=== PATIENT | female | born 1960 | race Caucasian/White ===

== ENCOUNTER 2016-05-22 08:55 | Inpatient (IN) | payer MEDICARE, MEDICAID ==
[~2016-05-22] VITALS: Ht 160 cm; Wt 67.6 kg
[2016-05-22] VITALS (9 sets, daily range): BP systolic 75–133; BP diastolic 47–78; PULSE 61–92; RESP 10–18; O2SAT 95–98
--- NOTE | 2016-05-22 09:00 | ED.REPORT ---
HPI-Stroke / CVA May 22, 2016 ED Provider: The patient is a 56 year old developmentally delayed female who was brought to the emergency department by her family members who are concerned she may have had a stroke. The patient had a few ground level falls yesterday which is different from her baseline. She did not complain of any injuries from the falls.This morning at 0130 her mother noticed that the patient was having difficulty speaking and slurred speech. This has continued and she is even unable to state her full name. Her sister states that the patient is normally very talkative and able to communicate. She would not normally know the year but would know her age. She does not have history of a previous stroke. She has not been sick with a fever, chills, vomiting, diarrhea, cough, runny nose. Nursing Notes Stated Complaint: POSS STROKE Nursing Notes Reviewed: Yes Allergies: Coded Allergies: Potassium Clavulanate (Verified Allergy, Severe, 03/16/09) amoxicillin trihydrate (Verified Allergy, Severe, 03/16/09) General Time Seen by Provider: 09:01 Chief Complaint Slurred speech, Unable to speak Hx Obtained From: Other family..., Dressage Instructor Unable to Obtain Hx: Patient condition Arrived By: Wheelchair Time last known well This is unclear. Her symptoms were noticed at 0130 today and she had multiple falls the day before. Sudden in Onset?: Yes Symptom Duration: 5 - 8 hours Progression Since Onset: Constant Severity: Current: No pain currently Severity: Maximum: No pain Recent Healthcare: No recent hospitalization, Recent doctor visit Similar Sx Previous: No Risk Factors )( TPA Administration/Criteria Stroke Thrombolytic Therapy : TPA Considered: Yes TPA Administered Intravenously: No, exclusion criteria (onset unclear, at least 0130 this morning) NIH Stroke Scale Level of Consciousness: Alert and responsive (0) Ask Month & Age: Both questions right (0) Open/Close Eyes/Hand Hvac Services Professional: Performs both tasks (0) Horizontal EO Movements: None (0) Visual Malik: No visual loss (0) Facial Palsy: Normal symmetry (0) Right Arm Motor Drift (10s): Drift, not touch bed (1) Left Arm Motor Drift (10s): No drift 10 sec (0) Right Leg Motor Drift (5s): Drift, hits bed (2) Left Leg Motor Drift (5s): Drift, not touch bed (1) Limb Ataxia FNF/Heel-Boss: Ataxia in 1 limb (1) Sensation (Arms/Legs/Face): Complete sensory loss (2) (Family does not believe the patient would be able to answer this at baseline) Language Aphasia: Loss fluency ID matls (1) Dysarthria: Slurring intelligible (1) Extinction/Inattention: Prfound reynaldo-inattent (2) (Family does not believe the patient would be able to answer this at baseline) NIHSS Score: 11 ((7)) Time NIHSS Performed: 09:07 Date NIHSS Performed: May 22, 2016 Past Medical History Past Medical History Developmentally delayed Seasonal allergies Past Surgical History Reports: Appendectomy Family History Noncontributory Social History Lives with her parents but her sister and niece help take care of her. Other Social History: Good social support, Local resident Ambulatory Status Independent Review of Systems Unable to Obtain ROS Patient condition, Mental status Constitutional: Denies: Fever Ears / Nose / Throat: Denies: Nasal congestion Respiratory: Denies: Non-productive cough GI: Denies: Diarrhea, Vomiting Skin: Denies Rash Neurologic: Reports: Confusion, Problem walking, Slurred speech, Unable to speak Physical Exam Initial Vital Signs Vital Signs (First) Date Time Temp Pulse Resp B/P Pulse Ox O2 Delivery O2 Flow Rate FiO2 05/22/16 09:12 70 10 122/67 98 Room Air Initial VS: Reviewed ENT: Mucous membranes moist, Conjunctiva normal, No scleral icterus Abdomen / GI: Soft, Non-tender, No guarding, No rebound, No distention Lymphatic: No lymphadenopathy Extremities: Vascular intact, Neuro intact, No swelling, No tenderness Skin: Warm, Dry, No cyanosis Psychiatric: Mood/affect normal, Behavior normal, Normal thought content General/Constitutional: Awake, Alert Head / Eyes: Atraumatic, Normocephalic, PERRL, EOMI Neck: Supple, No swelling, Non-tender, No midline vertebral tend Respiratory / Chest: Atraumatic, Breath sounds NL, Breath sounds = bilat, No respiratory distress, No rales, No rhonchi, No wheezing Cardiovascular: Heart rate NL, Regular rhythm, Heart sounds NL, No murmurs, No rubs, Peripheral circulation NL Mental Status: Positive: Disoriented to time (baseline) Speech: Positive: Slow, Slurred SEE NIH STROKE SCALE ABOVE FOR MORE DETAILS, score: 7. Sensory is untestable. Extinction is untestable. The patient has weakness about her right upper and lower extremity, and left lower extremity. She is not able to identify some materials. Her speech is slow and slurred. Her coordination is decreased to her right upper extremity. Interpretation & Diagnostics Lab Results Interpretation Result Diagram: 05/22/16 1005 05/22/16 1005 Test 05/22/16 10:05 05/22/16 10:10 White Blood Count 5.1th/mm3 (3.8-10.1) Red Blood Count 4.79mil/mm3 (3.90-5.20) Hemoglobin 13.4g/dL (12.0-15.6) Hematocrit 40.1% (35.0-46.0) Mean Corpuscular Volume 83.7fL (81-100) Mean Corpuscular Hemoglobin 28.0pg (27.0-35.0) Mean Corpuscular Hemoglobin Concent 33.4% (32.0-37.0) Red Cell Distribution Width 14.2% (12.3-15.4) Platelet Count 110bil/L (150-400) Neutrophils (%) (Auto) 83.4% (40-74) Lymphocytes (%) (Auto) 10.9% (14-46) Monocytes (%) (Auto) 5.5% (4-12) Eosinophils (%) (Auto) 0.2% (0-5) Basophils (%) (Auto) 0% (0-3) Sodium Level 143mEq/L (134-144) Potassium Level 4.1mEq/L (3.5-5.2) Chloride Level 103mEq/L (97-108) Carbon Dioxide Level 29mmol/L (18-29) Blood Urea Nitrogen 16mg/dL (6-24) Creatinine 0.45mg/dL (0.57-1.00) Estimat Glomerular Filtration Rate 206mL/min (>59) Glucose Level 144mg/dL (60-99) Calcium Level 10.3mg/dL (8.5-10.1) Total Bilirubin 0.2mg/dL (0.0-1.2) Aspartate Amino Transf (AST/SGOT) 54U/L (0-50) Alanine Aminotransferase (ALT/SGPT) 86U/L (0-32) Alkaline Phosphatase 110U/L (25-150) Total Protein 7.6g/dL (6.4-8.4) Albumin 3.9g/dL (3.4-5.0) ECG Interpretation ECG Interpretation: Sinus rhythm with a rate of 65 Incomplete LBBB Time: 10:55 Interpreted by: ED physician X-Ray Chest Interpretation Chest Xray Interpretation: IMPRESSION: No acute cardiopulmonary disease. Dictated by: David Carrasco M.D. on 05/22/2016 at 10:28 Interpretation / Wet Read by: Interpret - Radiologist CT Head Interpretation IMPRESSION: No acute intracranial abnormalities. Dictated by: David Carrasco M.D. on 05/22/2016 at 9:36 Study: Head CT no contrast Interpretation / Wet Read by: Interpret - Radiologist Re-Eval/Medical Decision Med Decision/Clinical Course The patient has no swallow reflex at all and drools with an ice chip and therefore is NPO indefinitely. I am therefore going to order a chest x-ray to exclude aspiration. Rectal temperature is 30C. External rewarming is initiated right away as soon as this value was obtained. Source of Hx: Old records, Dressage Instructor, Family Re-Evaluation/Progress #1: Time of Eval: 09:13 Re-Evaluation/Progress Note: Discussed exam findings, diagnosis, and plan for admission with the patient and family members. They understand and agree. All questions were addressed. Re-Evaluation/Progress #2: Time of Eval: 10:43 Re-Evaluation/Progress Note: Discussed findings with the patient's family members. Consultation : Referral / Consult Name: Lisandro Collins MD Consulted With: Hospitalist Requested Call at: 10:21 Air Traffic Control Supervisor: Will see patient, Agrees with eval, Agrees with plan, Accepts admit Counseled Regarding: Diagnosis, Lab results, Need for admission Patient Discharge & Departure Impression: Primary Impression: Stroke CVA mechanism: unspecified Qualified Code: I63.9 - Cerebral infarction, unspecified Additional Impression: Hypothermia Encounter type: initial encounter Qualified Code: T68.XXXA - Hypothermia, initial encounter Disposition: ADMITTED TO HOSPITAL Discharge Condition All VS Reviewed: Yes Condition: Stable Scribe Attestation Portions of this note were transcribed by Jodi Porter. I, Dr. Kalpesh Reyna personally performed the history, physical exam and medical decision-making; I reviewed and confirmed the accuracy of the information in the transcribed note. Signed by: Norman Melo, 05/22/2015 and 1102. Kalpesh Reyna MD May 22, 2016 09:00 Jodi Porter May 22, 2016 09:21
--- NOTE | 2016-05-22 09:38 | DRSVH ---
PROCEDURE: CT BRAIN WITHOUT CONTRAST ([id number]) INDICATIONS: 56 year-old female with right-sided weakness and loss of speech. TECHNIQUE: Noncontrast 4.5 mm thick angled axial sections acquired from the foramen magnum to the vertex, with c oronal reformats. COMPARISON: None. FINDINGS: Image quality: Excellent. CSF spaces: Basal cisterns are patent. No extra-axial fluid collections. Ventricles are normal in size and shape. Brain: No midline shift. No intracranial masses or hemorrhage. Camacho-white matter interface is norm al. Skull and face: Calvarium and visualized facial bones are intact, without suspicious lesions. Sinuses: Visualized sinuses and mastoids are clear. IMPRESSION: No acute intracranial abnormalities. Dictated by: David Carrasco M.D. on 05/22/2016 at 9:36 Approved by: David Carrasco M.D. on 05/22/2016 at 9:36
[2016-05-22 10:16] LABS: BASOPHILS % (AUTO) 0 % (0-3); EOSINOPHILS % (AUTO) 0.2 % (0-5); MONOCYTES % (AUTO) 5.5 % (4-12); Mean Corpuscular Volume 83.7 fL (81-100); NEUTROPHILS % (AUTO) 83.4 % (40-74); Platelet Count 110 bil/L (150-400)
--- NOTE | 2016-05-22 10:16 | NUR ---
Evaluation completed. Please go to "Notes" then click on "Assessments and Notes" (bottom left corner of screen). Then select appropriate discipline tab on top of screen.
--- NOTE | 2016-05-22 10:30 | DRSVH ---
PROCEDURE: X-RAY CHEST ONE VIEW, PORTABLE ([id number]) INDICATIONS: 56 year-old female with stroke symptoms. TECHNIQUE: One view of the chest was acquired. COMPARISON: [facility], , CHEST 1VW (PORTABLE), 03/19/2007, 5:44. [facility], , CHEST 2VW, 03/12/2007, 18:24. FINDINGS: Surgical changes and devices: None. Lungs and pleura: No pleural effusions or pneumothorax. Lungs are clear. Mediastinum: Mediastinal contours appear normal. Heart size is normal. Bones and chest wall: No suspicious bony lesions. Overlying soft tissues appear unremarkable. IMPRESSION: No acute cardiopulmonary disease. Dictated by: David Carrasco M.D. on 05/22/2016 at 10:28 Approved by: David Carrasco M.D. on 05/22/2016 at 10:28
[2016-05-22] MEDS ORDERED: Ondansetron 2 mg/mL 2 mL Inj IVPUSH PRN (10:45)
[2016-05-22] MEDS ORDERED: Alum-Mag Hydrox-Simeth 30 mL Suspension PO PRN (10:45)
[2016-05-22] MEDS ORDERED: 0.9% Sodium Chloride 1,000 ML IV ONE (11:00)
[2016-05-22] MEDS ORDERED: 0.9% Sodium Chloride 1,000 ML IV SCH (11:00)
[2016-05-22] MEDS ORDERED: MULT-1018 PO (11:01)
[2016-05-22] MEDS ORDERED: RISP2TAB3 PO (11:01)
[2016-05-22] MEDS ORDERED: CALC-78 PO (11:01)
[2016-05-22 11:11] LABS: APPEARANCE,URINE CLEAR (CLEAR,HAZY); COLOR,URINE YELLOW (YELLOW); OCCULT BLOOD,URINE NEGATIVE (NEGATIVE); UROBILINOGEN,URINE NORMAL (NORMAL)
--- NOTE | 2016-05-22 11:51 | ABG ---
DateTimeAnalyzed 11:47:00 -_ pH ____7.352 - 7.350 7.450 pCO2 ___57.9__ -mmHg 35.0 45.0 pO2 116 -mmHg 69.0 116 HCO3- ___31.3__ -mmol/L 22.0 26.0 ABE ____4.7__ -mmol/L -2.0 2.0 tHb ___13.0__ -g/dL O2Hb ___96.5__ -% COHb ____0.2__ -% MetHb ____1.3__ -% sO2 ___98.0__ -% FIO2 ___21.0__ -% Drawn By jj - Date/Time Notified____ 11:51:00 -_ Oxygen Device 1 _ROOM AIR - Notified By jj - Notified Whom dr oscar - B 758 -mmHg tO2 ___17.8__ -Vol% Chang test _Positive -
[2016-05-22 12:33] LABS: Ammonia 26 ug/dL (18-53)
[2016-05-22 12:46] LABS: TROPONIN T 0.01 ug/L (0.0-0.011)
--- NOTE | 2016-05-22 13:46 | NUR ---
Case Management: IRINA delivered and explained to pt. and caregiver. Original placed in chart. Copy left at bedside. Yareli Mckeon RN
--- NOTE | 2016-05-22 14:46 | NUR ---
Admit Pt arrived to [facility] rm 1027 at approx 1200. Report give to set up and charger from Marisel Vee RN. Pt was moved to the hospital bed via slider board. Family at bedside. Pt arrive w/o a bear hugger, awaiting another machine from boiler house inspector. Admit complete, family oriented to room and call light by COURT BAILIFF. Pt is dev delay at baseline. Med rec complete and hospitalist is aware. Addendum: 05/22/16 at 1753 by RAVEN OVALLES RN Bear hugger placed at approx 1530 set at 44c.
--- NOTE | 2016-05-22 15:14 | DRSVH ---
PROCEDURE: MRI STROKE PROTOCOL ([id number]) Pre- and post-contrast brain MRI, non-contrast brain MR angiogram, pre- and postcontrast neck MR marie ogram INDICATIONS: 56 year-old female with stroke symptoms. TECHNIQUE: Brain: Noncontrast axial T1 spin echo, axial T2 fast spin echo, sagittal and axial FLAIR, coronal T2 fast spin echo, axial gradient echo, axial diffusion and ADC through the brain. After the administr ation of contrast, axial 3D VIBE of the cranial vasculature and brain. Brain MRA: Non-contrast 3-D time of flight MR angiogram, with multiple rdpkyff-kbyddgxqn-bromkvpzqy (MIP) reformats performed. Neck MRA: Axial and sagittal TruFISP through the neck. Coronal dynamic MR angiogram during administ ration of contrast in the arterial and venous phases, with 3-dimenstional bhxqifk-xwtgnrlvz-iqpqnsujv n (MIP) reformats constructed from subtraction images. COMPARISON: [facility], CT, CT BRAIN WO CON, 05/22/2016, 9:24. FINDINGS: Image quality: Excellent. BRAIN: CSF spaces: Ventricles are normal in size and shape. Basal cisterns are patent. No extra-axial flu id collections. Brain: No intracranial bleeds or mass effects. Camacho-white matter interface is normal. Diffusion we ighted images show no acute ischemic insults. Brainstem appears normal. Normal intravascular flow v oids are present. No abnormal intracranial enhancement. Skull and face: Calvarial marrow signal is normal. Orbits appear normal. Sinuses: Sinuses and mastoids are clear. BRAIN MR ANGIOGRAM: Anterior circulation: Intracranial internal carotid arteries are normal in size and enhancement. Th e flow within the paired anterior cerebral arteries is normal and symmetric. The flow within the mid dle cerebral arteries is normal and symmetric. The anterior communicating artery is seen. No stenos es, occlusions, or aneurysms. Posterior circulation: The visualized portions of the vertebral arteries demonstrate normal caliber, and join to form a normal appearing basilar artery. The flow within the posterior cerebral arteries is normal and symmetric. No stenoses, occlusions, or aneurysms. NECK MR ANGIOGRAM: Carotids: Great vessels demonstrate a conventional anatomy as they arise from the aortic arch. The origins of the common carotid arteries appear patent. The calibers and courses of both common caroti d arteries are normal. The bifurcation regions appear normal bilaterally. The internal carotid cindy lashell demonstrate caliber, with bilateral mid internal carotid tortuosity. Posterior circulation: The origins of the codominant vertebral arteries appear patent. More superio r portions of both vertebral arteries demonstrate normal course and caliber, and join to form a kelli l appearing basilar artery. Miscellaneous: Subclavian arteries appear patent. Pre-contrast images through the neck show no soft tissue abnormalities. IMPRESSION: BRAIN MRI: No acute intracranial abnormalities. BRAIN MR ANGIOGRAM: No hemodynamically significant lesions of the central intracranial vasculature. NECK MR ANGIOGRAM: No hemodynamically significant lesions of the extracranial neck vasculature. Dictated by: David Carrasco M.D. on 05/22/2016 at 15:12 Approved by: David Carrasco M.D. on 05/22/2016 at 15:12
--- NOTE | 2016-05-22 16:31 | NUR ---
Social Work: Screen Note: Data & Assessment: EMR Reviewed. Patient is a 56 y/o female who admitted for CVA. Patient is developmentally delayed at baseline per nurses note. Patient's NOK is listed as Lynda Borjas [phone]. patient does not have a DPOA on file. Patient PCP is listed as Yuki Romo PA-C. Patient insurance is Medicare and [facility] as secondary. SW will continue to follow. Plan: SW will continue to follow for discharge planning need. Clary Carrera LMSW, ACAriel
--- NOTE | 2016-05-22 17:41 | PCM.HPMED ---
Subjective Date of Service May 22, 2016 Primary Provider: Admitting Physician: Lisandro Collins MD Primary Care Physician: Jaimie Romo PA-C Attending Physician: Lisandro Collins MD Admit Status: From the Emergency Department, Full Admit, Admit to Red Team Chief Complaint: Altered mental status/1 day History of Present Illness: 56-year-old lady with past medical history of cognitive developmental delay was brought in by family due to altered mental status and generalized weakness of 1 day. Patient was noted to have 2 episodes of ground-level falls yesterday, which was unusual for her. Patient was also noted be be lethargic/sleepy and non verbal today . Normally she is talkative as per family. This morning at 1 AM patient went into her mother's bedroom and was just staring which is unusual for her and was having slurring of speech which prompted ED visit. Ed course : Severely hypothermic rectal temp 30, BP 122/67, HR 70, RR 8 /m, saturating 98% on room air Reportedly had right-sided weakness on initial exam as per ED physician, initial NIHSS 7 . Not a candidate for TPA due to out of window Labs unremarkable, urinalysis negative. CT head unremarkable Hospitalist service requested for admission for suspected acute stroke. Upon my evaluation: Severely hypothermic, very lethargic, follows commands intermittently. Able to lift all 4 extremities and no asymmetry noted. Dry tongue Review of Systems: A comprehensive review of systems performed , pertinent positives and negatives included in history of present illness Allergies Coded Allergies: Potassium Clavulanate (Verified Allergy, Severe, 03/16/09) amoxicillin trihydrate (Verified Allergy, Severe, 03/16/09) Home Medications Risperidone 2 mg by mouth twice a day Calcium 500+ D3 500 daily PMH Cognitive developmental delay History of appendiceal abscess Surgical History Appendectomy Family History Reviewed and unremarkable Lives with parents, Social History Hx Alcohol Use: No Hx Substance Use: No Hx Tobacco Use: No Living Arrangement: with Family Exam Vital Signs Vital Sign - Last Date Time Temp Pulse Resp B/P Pulse Ox O2 Delivery O2 Flow Rate FiO2 05/22/16 15:49 30.4 05/22/16 15:03 63 05/22/16 12:00 18 126/78 96 Room Air Exam Gen. patient is lying comfortably in hospital bed HEENT: Head is normocephalic atraumatic, Pupils equal and reactive, extraocular movements intact, Lungs clear to auscultation bilaterally Heart regular rate and rhythm without murmurs gallops or rubs Abdomen soft nontender without hepatosplenomegaly Extremities pulses are present dorsalis pedis posterior tibialis and radial. tSkin is warm and dry there are no rashes, Psych alert and oriented to person place and time Neuro initial exam. Patient very lethargic and follows commands intermittently. Moves all 4 extremity, no asymmetry noted. Patient being warmed with a beat hugger . Mentation improved on subsequent exam. No slurring of speech. Lymph: There is no lymphadenopathy appreciated in the cervical supra infraclavicular regions : no gill Lab and Diagnostics Result Diagram: 05/22/16 1005 05/22/16 1005 X-Rays, CTs and MRIs MRI IMPRESSION: BRAIN MRI: No acute intracranial abnormalities. BRAIN MR ANGIOGRAM: No hemodynamically significant lesions of the central intracranial vasculature. NECK MR ANGIOGRAM: No hemodynamically significant lesions of the extracranial neck vasculature. Dictated by: David Carrasco M.D. on 05/22/2016 at 15:12 Assessment & Plan 56-year-old lady with past medical history of cognitive developmental delay was brought in by family due to altered mental status and generalized weakness of 1 day. # Altered mental status ,poa,acute -Unclear etiology at this point. Mainly due to hypothermia. Mentation improving with rewarming. - Patient has elevated TSH 5.6 but normal free T4, MRI negative for acute stroke , urinalysis normal , ammonia normal -Abnormal thyroid function possibly due to sick euthyroid but will treat with IV Synthroid given hypothermia of unclear etiology -Failed swallow eval,npo -NS 1 L bolused,100ml./h -urine tox pending # severe hypothermia,poa,acute -Possibly accidental hypothermia due to exposure to cold environment given cognitive developmental delay. Unclear /not witnessed if she is exposed to cold environment -Initial Rectal temp 30. -EKG unremarkable -watch out for hypoglycemia,arrythmia and rhabdo on rewarming -Continue Bear hugger warming # Initially suspected CVA, TIA possible -Rectal aspirin given -MRI negative -We will consider discharging on aspirin and statin for suspected TIA given reported slurred speech and right-sided weakness in ED with initial NIHSS 7, -PT eval # Hypercalcemia -Likely due to dehydration -IV rehydration as above - will send PTH and vit D #Cognitive developmental delay - will resume risperidone once able to swallow Full code as per POA POA sister Marjorie tel [phone] Patient admitted under inpatient status with expected length of stay > 2 midnights for severity of present symptoms, complexities of treatment plan and risk for adverse events Resuscitation Status: CPR: Attempt Resuscitation Time spent 55 minutes copies to: Jaimie Romo PA-C, Melaku MD May 22, 2016 17:41
[2016-05-22] MEDS: Levothyroxine 100 mCg/5 mL Inj IM SCH (17:43)
[2016-05-22] MEDS: Dextrose 5% 0.45% NaCl 1,000 ML IV SCH (22:28)
[2016-05-23] VITALS (9 sets, daily range): BP systolic 90–113; BP diastolic 53–68; PULSE 56–89; RESP 17–19; O2SAT 96–100
--- NOTE | 2016-05-23 | NUR ---
Temp Body temp has come up to normal, measured orally. Bear hugger removed and temp steady. Pt felt hot but has normalized with appropriate blankets.
[2016-05-23] MEDS ORDERED: 0.9% Sodium Chloride 500 ML IV ONE (00:40)
[2016-05-23] MEDS: 0.9% Sodium Chloride 1,000 ML IV SCH ×3 (03:54→23:50)
--- NOTE | 2016-05-23 04:00 | NUR ---
Low B/P B/P low at 2345, NS bolus given with minimal effect. At 0300 recheck B/P remains low, started concurrent fluids for support. Pt able to void spontaneously adequate urine output. Able to ambulate to BR with strong, steady gait; no evidence of dizziness, no SOB. Q4 hour vitals continue.
[2016-05-23 06:33] LABS: BASOPHILS % (AUTO) 0.2 % (0-3); EOSINOPHILS % (AUTO) 0.2 % (0-5); MONOCYTES % (AUTO) 11.5 % (4-12); Mean Corpuscular Hemoglobin 27.3 pg (27.0-35.0); Mean Corpuscular Volume 85.1 fL (81-100); NEUTROPHILS % (AUTO) 70.5 % (40-74); Platelet Count 99 bil/L (150-400)
[2016-05-23 06:47] LABS: Magnesium 1.5 mg/dL (1.6-2.6)
[2016-05-23] MEDS: Levothyroxine 100 mCg/5 mL Inj IM SCH (07:34)
[2016-05-23] MEDS ORDERED: Magnesium Sulf 2 Gm/50mL Water 2 GM in IV Premix 1 EACH IV ONE (08:00)
[2016-05-23] MEDS ORDERED: 0.9% Sodium Chloride 1,000 ML IV ONE (08:00)
[2016-05-23] MEDS: Dextrose 5% 0.45% NaCl 1,000 ML IV SCH ×2 (10:11→21:00)
--- NOTE | 2016-05-23 16:14 | NUR ---
Off Unit Patient off floor to CT via W/C.
--- NOTE | 2016-05-23 16:30 | NUR ---
Back on Unit Patient back on floor from CT via W/C.
--- NOTE | 2016-05-23 16:49 | DRSVH ---
PROCEDURE: CT ABDOMEN AND PELVIS WITHOUT CONTRAST ([id number]) INDICATIONS: pain TECHNIQUE: Noncontrast 5 mm thick sections acquired from the diaphragms to the symphysis. 5 mm coronal and sagi ttal reformats were then performed. For radiation dose reduction, the following was used: automated exposure control, adjustment of mA and/or kV according to patient size. COMPARISON: None. FINDINGS: Image quality: Excellent. ABDOMEN: Lung bases: There are small low density pleural effusions and mild compressive atelectasis at the oni g bases. Solid organs: Liver and spleen are normal in size. Gallbladder is unremarkable. Pancreas is normal in contours. No adrenal nodules. Kidneys are normal in size, without hydronephrosis or nephrolithi asis. Peritoneum and bowel: Unenhanced bowel loops demonstrate normal wall thickness and caliber. The appe ndix is not visualized; however surgical clips are present in the region of the cecum in the lower qu adrant suggesting prior appendectomy. There are scattered sigmoid diverticula. No evidence for divert iculitis. No free fluid or air. Inspissated stool is visualized within the distal colon. Nodes and vessels: No retroperitoneal or mesenteric adenopathy by size criteria. Aorta and inferior vena cava are normal in caliber. Miscellaneous: No ventral hernias. PELVIS: Genitourinary: Bladder wall thickness is normal. The bladder is markedly distended with urine. Miscellaneous: No inguinal hernias or adenopathy. Bones: No suspicious bony lesions. No vertebral body compression fractures. IMPRESSION: 1. Small low density bilateral pleural effusions and mild compressive atelectasis. 2. Probable appendectomy. Diverticulosis. No acute diverticulitis. 3. No acute intra-abdominal findings to explain abdominal pain. Dictated by: Noemi Lock M.D. on 05/23/2016 at 16:47 Approved by: Noemi Lock M.D. on 05/23/2016 at 16:47
[2016-05-23] MEDS ORDERED: Acetaminophen IV 1,000 MG in IV Premix 1 EACH IV ONE (16:50)
--- NOTE | 2016-05-23 18:20 | PCM.PNMED ---
Subjective Date of Service May 23, 2016 Subjective Temperature improved, temp 36.5 today. Blood pressures borderline low. Normal saline bolused. Magnesium repleted,. Patient complained of abdominal pain. CT scan unremarkable. Mentation improved markedly but not back to baseline as per family Exam Vital Signs Vital Sign - Last Date Time Temp Pulse Resp B/P Pulse Ox O2 Delivery O2 Flow Rate FiO2 05/23/16 14:38 36.1 66 18 113/68 98 Room Air Intake and Output 05/22/16 05/22/16 05/23/16 Cumulative From/Thru 15:00 23:00 07:00 05/22/16 09:12 - 05/23/16 06:37 Intake Total 1003 ml 0 ml 1003 ml Output Total 0 ml 400 ml 400 ml Balance 1003 ml -400 ml 603 ml Intake Oral 0 ml 0 ml 0 ml IV Total 1003 ml 1003 ml Output Urine Total 0 ml 400 ml 400 ml Exam Gen. patient is lying comfortably in hospital bed HEENT: Head is normocephalic atraumatic, Pupils equal and reactive, extraocular movements intact, Lungs clear to auscultation bilaterally Heart regular rate and rhythm without murmurs gallops or rubs Abdomen soft nontender without hepatosplenomegaly Extremities pulses are present dorsalis pedis posterior tibialis and radial. Skin is warm and dry there are no rashes, Psych alert and oriented to person place and time Neuro initial exam. Patient more alert and follows commands . Answers yes and no only. Moves all 4 extremity, no asymmetry noted. Mentation/lethargy improved . No slurring of speech. Lymph: There is no lymphadenopathy appreciated in the cervical supra infraclavicular regions : no gill IVs and Medications Medications Reviewed: Medications were reviewed in detail Lab and Diagnostics Result Diagram: 05/23/16 0610 05/23/16 0610 X-Rays, CTs and MRIs MRI IMPRESSION: BRAIN MRI: No acute intracranial abnormalities. BRAIN MR ANGIOGRAM: No hemodynamically significant lesions of the central intracranial vasculature. NECK MR ANGIOGRAM: No hemodynamically significant lesions of the extracranial neck vasculature. Dictated by: David Carrasco M.D. on 05/22/2016 at 15:12 CT abd IMPRESSION: 1. Small low density bilateral pleural effusions and mild compressive atelectasis. 2. Probable appendectomy. Diverticulosis. No acute diverticulitis. 3. No acute intra-abdominal findings to explain abdominal pain. Dictated by: Noemi Lock M.D. on 05/23/2016 at 16:47 Assessment & Plan 56-year-old lady with past medical history of cognitive developmental delay was brought in by family due to altered mental status and generalized weakness of 1 day. # Altered mental status ,poa,acute -Unclear etiology . Mainly due to hypothermia. Mentation improved with rewarming. Family says very unlikely she was exposed to cold. - Patient has elevated TSH 5.6 but normal free T4, MRI negative for acute stroke , urinalysis normal , ammonia normal -Abnormal thyroid function possibly due to sick euthyroid but will treat with IV Synthroid given hypothermia of unclear etiology of AMS -Failed swallow eval,npo -NS 1 L bolused,100ml./h -urine tox negative - Mentation improved markedly but not back to baseline as per family -Patient complained of abdominal pain at one point. CT scan done unremarkable # severe hypothermia,poa,acute -Initially suspected accidental hypothermia due to exposure to cold environment given cognitive developmental delay. Unclear /not witnessed if she is exposed to cold environment. Family says unlikely -Initial Rectal temp 30. -EKG unremarkable -Treated with Bear hugger warming # Initially suspected CVA, TIA possible -Rectal aspirin given -MRI negative -We will consider discharging on aspirin and statin for suspected TIA given reported slurred speech and right-sided weakness in ED with initial NIHSS 7, I did not see any lateralizing sign. -PT eval # Hypercalcemia -Likely due to dehydration -IV rehydration as above - PTH and vit D pending #Cognitive developmental delay - will resume risperidone once able to swallow Full code as per POA POA sister Marjorie tel [phone] Disposition: Discharge in 1-2 days if continues to improve Resuscitation Status: CPR: Attempt Resuscitation Lisandro Collins MD May 23, 2016 18:20
[2016-05-24 00:42] VITALS: BP 103/57; PULSE 61; RESP 17; O2SAT 97
--- NOTE | 2016-05-24 02:36 | NUR ---
Pain/Dr. communication Pt. c/o abd. pain and orders received from Dr. Bucio yet when asked again she stated she was "better".Also received orders to stop NS IV and D/C tele.VSS,abd. soft with BT,UOP qs.Up with SBA and moving well.Mother at bedside.Sleeping intermittently and resting comfortably at this time.Will cont. to monitor.
[2016-05-24] MEDS: Dextrose 5% 0.45% NaCl 1,000 ML IV SCH ×3 (04:20→18:19)
[2016-05-24 05:57] VITALS: BP 126/76; PULSE 61; RESP 16; O2SAT 95
[2016-05-24 10:04] LABS: Mean Corpuscular Hemoglobin 27.4 pg (27.0-35.0); Mean Corpuscular Volume 84.2 fL (81-100)
[2016-05-24 10:21] LABS: INR 0.98 ratio
[2016-05-24 10:35] LABS: Magnesium 1.9 mg/dL (1.6-2.6)
[2016-05-24] MEDS: Levothyroxine 100 mCg/5 mL Inj IM SCH (12:54)
[2016-05-24 14:06] VITALS: BP 129/68; PULSE 65; RESP 18; O2SAT 100
--- NOTE | 2016-05-24 15:51 | NUR ---
Social Work Initial Assessment D: EMR reviewed. See initial assessment. Pt is a 56Y old female admitted for CVA. Insurance is Medicare and [facility] Supp. PCP id Jaimie Romo. Readmission score 05/28. SW met with Pt and Pt's mother at bedside, SW role explained. Pt lives at home with her mother and family in [place]. Pt is developmentally delayed though can answer simple questions and has a good sense of humor. Pt has never had HH services or been to SNF. Pt does not have any outside caregivers. All caregiving provided by family. Pt does not use any DME. ST currently has Pt as NPO, Clinical Course Pending for Pt. SW anticipates Pt to discharge home via POV when medically stable. No discharge needs identified. If needs arise, SW to address. A: Pt who is developmentally delayed, lives with family P: ll caregiving provided by family. Pt does not use any DME. ST currently has Pt as NPO, Clinical Course Pending.Follow for ST recommendations for discharge. SW anticipates Pt to discharge home via POV when medically stable. No discharge needs identified. If needs arise, SW to address. HAYDER Lopez Addendum: 05/24/16 at 1555 by MO MORRIS Amended: Links added.
--- NOTE | 2016-05-24 17:31 | PCM.PNMED ---
Subjective Date of Service May 24, 2016 Subjective denies any new issues/complaints. her mother notes that she is almost back to her baseline Exam Vital Signs Vital Sign - Last Date Time Temp Pulse Resp B/P Pulse Ox O2 Delivery O2 Flow Rate FiO2 05/24/16 14:06 35.9 65 18 129/68 100 05/24/16 05:57 Room Air Intake and Output 05/23/16 05/23/16 05/24/16 Cumulative From/Thru 15:00 23:00 07:00 05/22/16 09:12 - 05/24/16 06:53 Intake Total 2150 ml 2538 ml 1780 ml 7471 ml Output Total 800 ml 2300 ml 3500 ml Balance 2150 ml 1738 ml -520 ml 3971 ml Intake Oral 0 ml 0 ml IV Total 2150 ml 2538 ml 1780 ml 7471 ml Output Urine Total 800 ml 2300 ml 3500 ml # Voids 1 3 4 Exam Gen. patient is lying comfortably in hospital bed HEENT: Head is normocephalic atraumatic, Pupils equal and reactive, extraocular movements intact, Lungs clear to auscultation bilaterally Heart regular rate and rhythm without murmurs gallops or rubs Abdomen soft nontender without hepatosplenomegaly Extremities pulses are present dorsalis pedis posterior tibialis and radial. Skin is warm and dry there are no rashes, Neuro initial exam. Patient more alert and follows commands . Moves all 4 extremity, no asymmetry noted. : no gill IVs and Medications Medications Reviewed: Medications were reviewed in detail Lab and Diagnostics Result Diagram: 05/24/16 0945 05/24/16 0945 X-Rays, CTs and MRIs MRI IMPRESSION: BRAIN MRI: No acute intracranial abnormalities. BRAIN MR ANGIOGRAM: No hemodynamically significant lesions of the central intracranial vasculature. NECK MR ANGIOGRAM: No hemodynamically significant lesions of the extracranial neck vasculature. Dictated by: David Carrasco M.D. on 05/22/2016 at 15:12 CT abd IMPRESSION: 1. Small low density bilateral pleural effusions and mild compressive atelectasis. 2. Probable appendectomy. Diverticulosis. No acute diverticulitis. 3. No acute intra-abdominal findings to explain abdominal pain. Dictated by: Noemi Lock M.D. on 05/23/2016 at 16:47 Assessment & Plan 56-year-old lady with past medical history of cognitive developmental delay was brought in by family due to altered mental status and generalized weakness of 1 day. # Altered mental status ,poa, acute. likely due acute toxic/metabolic encephalopathy. - Mainly due to hypothermia. Mentation improved with rewarming. Family says very unlikely she was exposed to cold. - Patient had elevated TSH 5.6 but normal free T4 (likely acute phase reaction. TSH now back to normal) - MRI negative for acute stroke, urinalysis normal , ammonia normal # Dysphagia. Suspect acute. poa. unclear etiology - Failed swallow eval - continue to reassess daily as mental status improve # severe acute hypothermia,poa. - Resolved - Suspect accidental hypothermia due to exposure to cold environment given cognitive developmental delay. Unclear /not witnessed if she is exposed to cold environment. - Initial Rectal temp 30. - EKG unremarkable - Treated with Bear hugger warming # Initially suspected acute CVA, TIA possible MRI negative - will consider discharging on aspirin and statin for suspected TIA given reported slurred speech and right-sided weakness in ED with initial NIHSS 7 - PT eval # Hypercalcemia - Likely due to dehydration - resolved with IVF # Cognitive developmental delay - will resume risperidone once able to swallow Dispo: 1-2 days pending improved swallowing Resuscitation Status: CPR: Attempt Resuscitation Time spent 30 min Abraham Barber May 24, 2016 17:31
--- NOTE | 2016-05-24 19:18 | NUR ---
Communication Patient unable to answer questions, deferred to mother for answers. Patient tolerating meals well. Denies pain and or discomfort. Bed in low position, upper side rails up, call light within reach.
[2016-05-24 20:08] VITALS: BP 128/80; PULSE 72; RESP 19; O2SAT 98
[2016-05-24] MEDS: risperiDONE 2 mg Tablet PO SCH (20:37)
--- NOTE | 2016-05-25 02:39 | NUR ---
Dysphagia Allen. po food and fluids w/o difficulty.UOP brisk. Pt. pulled her IV out at approx. 0200.Will leave out for now r/t anticipated discharge today.VSS.Denies pain.Sleeping intermittently and resting comfortably at this time.Will cont. to monitor.
[2016-05-25 06:13] VITALS: BP 120/77; PULSE 79; RESP 18; O2SAT 96
[2016-05-25] MEDS: risperiDONE 2 mg Tablet PO SCH ×2 (07:31→20:30)
[2016-05-25] MEDS: Dextrose 5% 0.45% NaCl 1,000 ML IV SCH (08:18)
[2016-05-25] MEDS: Polyethylene Glycol (PEG) 17 Gm Powder PO PRN (10:43)
--- NOTE | 2016-05-25 12:05 | PCM.PNMED ---
Subjective Date of Service May 25, 2016 Subjective denies any new issues/complaints. Exam Vital Signs Vital Sign - Last Date Time Temp Pulse Resp B/P Pulse Ox O2 Delivery O2 Flow Rate FiO2 05/25/16 06:13 35.5 79 18 120/77 96 Room Air Intake and Output 05/24/16 05/24/16 05/25/16 Cumulative From/Thru 15:00 23:00 07:00 05/22/16 09:12 - 05/25/16 06:13 Intake Total 2132 ml 1138 ml 23267 ml Output Total 900 ml 1550 ml 5950 ml Balance 1232 ml -412 ml 4791 ml Intake Oral 894 ml 390 ml 1284 ml IV Total 1238 ml 748 ml 9457 ml Output Urine Total 900 ml 1550 ml 5950 ml # Voids 4 Exam Gen. patient is lying comfortably in hospital bed HEENT: Head is normocephalic atraumatic, Pupils equal and reactive, extraocular movements intact, Lungs clear to auscultation bilaterally Heart regular rate and rhythm without murmurs gallops or rubs Abdomen soft nontender without hepatosplenomegaly Extremities pulses are present dorsalis pedis posterior tibialis and radial. Skin is warm and dry there are no rashes, Neuro initial exam. Patient more alert and follows commands . Moves all 4 extremity, no asymmetry noted. : no gill IVs and Medications Medications Reviewed: Medications were reviewed in detail Lab and Diagnostics Result Diagram: 05/24/16 0945 05/24/16 0945 X-Rays, CTs and MRIs MRI IMPRESSION: BRAIN MRI: No acute intracranial abnormalities. BRAIN MR ANGIOGRAM: No hemodynamically significant lesions of the central intracranial vasculature. NECK MR ANGIOGRAM: No hemodynamically significant lesions of the extracranial neck vasculature. Dictated by: David Carrasco M.D. on 05/22/2016 at 15:12 CT abd IMPRESSION: 1. Small low density bilateral pleural effusions and mild compressive atelectasis. 2. Probable appendectomy. Diverticulosis. No acute diverticulitis. 3. No acute intra-abdominal findings to explain abdominal pain. Dictated by: Noemi Lock M.D. on 05/23/2016 at 16:47 Assessment & Plan 56-year-old lady with past medical history of cognitive developmental delay was brought in by family due to altered mental status and generalized weakness of 1 day. # Altered mental status ,poa, acute. likely due acute toxic/metabolic encephalopathy. - Mainly due to hypothermia. Mentation improved with rewarming. Family says very unlikely she was exposed to cold. - Patient had elevated TSH 5.6 but normal free T4 (likely acute phase reaction. TSH now back to normal) - MRI negative for acute stroke, urinalysis normal , ammonia normal # Dysphagia. Suspect acute. poa. unclear etiology - Failed swallow eval earlier but improving today and diet advanced to mechanical soft - continue to reassess daily as mental status improve # severe acute hypothermia, poa. - Had resolved earlier but today temperature seems to be trending down again ( Temp 35.5 C) - Suspect accidental hypothermia due to exposure to cold environment earlier, given cognitive developmental delay. - Initial Rectal temp 30. - EKG unremarkable - Treated with Bear hugger warming # Initially suspected acute CVA, TIA possible - MRI negative - will consider discharging on aspirin and statin for suspected TIA given reported slurred speech and right-sided weakness in ED with initial NIHSS 7 - PT eval # Hypercalcemia - Likely due to dehydration - resolved with IVF # Cognitive developmental delay - will resume risperidone once able to swallow Dispo: was hoping to d/c today but will hold off to ensure Temp stays stable and does not drift down any further Resuscitation Status: CPR: Attempt Resuscitation Time spent 30 min Abraham Barber May 25, 2016 12:05
[2016-05-25 13:10] VITALS: BP 100/68; PULSE 69; RESP 16; O2SAT 98
[2016-05-25 15:40] VITALS: BP 112/75; PULSE 69; RESP 14; O2SAT 97
--- NOTE | 2016-05-25 18:16 | NUR ---
LOC Patient behavior abnormal from baseline per Madison HORNER. Hallucinations, low temperature, and hypoactive bowel sounds noted this shift. UA sent to r/o CORI MCCLENDON utilized to bring up temperature. Patient refused ambulation. Addendum: 05/25/16 at 1829 by SILVINO DE LA CRUZ RN Dr. Barber made aware and assessed patient.
[2016-05-25 18:28] LABS: APPEARANCE,URINE CLEAR (CLEAR,HAZY); COLOR,URINE STRAW (YELLOW); OCCULT BLOOD,URINE TRACE (NEGATIVE); UROBILINOGEN,URINE NORMAL (NORMAL)
[2016-05-25 19:43] VITALS: BP 108/67; PULSE 67; RESP 16; O2SAT 94
[2016-05-26] VITALS (10 sets, daily range): BP systolic 95–119; BP diastolic 58–77; PULSE 68–96; RESP 10–18; O2SAT 92–99
--- NOTE | 2016-05-26 03:38 | NUR ---
Update on pt.'s status Pt.'s first temp was WNL, however the last temp. did go below normal limits. Pt. still has the warmer blanket on. Mother in room. Pt. is asking appropriately to use bedside commode. Will continue to monitor.
[2016-05-26] MEDS: Dextrose 5% 0.45% NaCl 1,000 ML IV SCH ×2 (07:09→22:08)
[2016-05-26 08:23] LABS: BASOPHILS % (AUTO) 0.1 % (0-3); EOSINOPHILS % (AUTO) 0.3 % (0-5); MONOCYTES % (AUTO) 9.3 % (4-12); Mean Corpuscular Hemoglobin 27.8 pg (27.0-35.0); Mean Corpuscular Volume 84.1 fL (81-100); NEUTROPHILS % (AUTO) 72.7 % (40-74); Platelet Count 115 bil/L (150-400)
[2016-05-26] MEDS: risperiDONE 2 mg Tablet PO SCH ×2 (08:30→20:28)
[2016-05-26] MEDS ORDERED: 0.9% Sodium Chloride 1,000 ML IV ONE (08:35)
[2016-05-26 08:46] LABS: Magnesium 1.5 mg/dL (1.6-2.6); Phosphorus 2.6 mg/dL (2.5-4.9)
[2016-05-26] MEDS ORDERED: Magnesium Sulf 2 Gm/50mL Water 2 GM in IV Premix 1 EACH IV ONE (09:00)
--- NOTE | 2016-05-26 09:14 | NUR ---
CHANGE IN CONDITION During rounding patient was noted to be unresponsive to verbal and tactile stimuli. Unable to respond to sternal rub. Dilated pupils; Non-reactive. BS-77. O2 sats on room air is 88 %. Patient placed on O2 at 2 LPM. MD is at the bedside. D50 1 amp administered. NS bolus infusing at this time. STAT Brain CT ordered. Patient placed on tele. Per teletypewriter installer patient is on sinus rhythm; HR-92. Mg-1.5. Orders for MG 2 gms IV was ordered. Jyotsna is at the bedside and was made aware RE: Patients change in condition. Will continue to monitor.
--- NOTE | 2016-05-26 09:43 | DRSVH ---
PROCEDURE: CT BRAIN WITHOUT CONTRAST ([id number]) INDICATIONS: lethargy TECHNIQUE: Noncontrast 4.5 mm thick angled axial sections acquired from the foramen magnum to the vertex, with c oronal reformats. COMPARISON: [facility], CT, CT BRAIN WO CON, 05/22/2016, 9:24. FINDINGS: Image quality: Excellent. CSF spaces: Basal cisterns are patent. No extra-axial fluid collections. Ventricles are normal in size and shape. Brain: No midline shift. No intracranial masses or hemorrhage. Camacho-white matter interface is norm al. Skull and face: Calvarium and visualized facial bones are intact, without suspicious lesions. Sinuses: Visualized sinuses and mastoids are clear. IMPRESSION: No acute intracranial disease process. Dictated by: Jacinta Ibrahim MD, PhD on 05/26/2016 at 9:39 Approved by: Jacinta Ibrahim MD, PhD on 05/26/2016 at 9:39
[2016-05-26] MEDS: Dextrose 5% 1,000 ML IV SCH ×2 (09:55→21:37)
--- NOTE | 2016-05-26 10:06 | NUR ---
MENTATION Patient is able to wake up to tactile stimuli. She was able to recognize her sister-Viridiana but she continues to be lethargic. Post brain CT. Addendum: 05/26/16 at 1102 by KATHI NEWMAN RN MENTATION Patient continues to be lethargic at this time. Per her sister she has some periods of lucidity. Patient has not had adequate rest/sleep for 2 days per her family.
--- NOTE | 2016-05-26 17:08 | NUR ---
MENTATION Patient is alert and oriented to person. Easily to arouse. Answers her families questions. Per her family she is back to her baseline at this time. Via FELDT scale patients pain level is 0/10. Denies nausea. Will restart her diet if she is awake enough to eat. Denies SOB. Incontinent at this time. Patient continues to be on tele. Per telephone operators supervisor patient is on sinus rhythm; HR-70'S. Family is at the bedside.
--- NOTE | 2016-05-26 17:09 | PCM.PNMED ---
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, RrL022% on RA, so IVF 1liter given, O2 supplement started pt was more awake this afternoon, recognized family, answer questions appropriately Family had been at bedside, Code status now DNR/DNI Temp is normalized since this AM Exam Vital Signs Vital Sign - Last Date Time Temp Pulse Resp B/P Pulse Ox O2 Delivery O2 Flow Rate FiO2 05/26/16 15:46 36.1 77 14 111/70 96 Nasal Cannula 4.00 Intake and Output 05/25/16 05/25/16 05/26/16 Cumulative From/Thru 15:00 23:00 07:00 05/22/16 09:12 - 05/26/16 06:12 Intake Total 1436 ml 150 ml 33348 ml Output Total 700 ml 100 ml 6750 ml Balance 736 ml 50 ml 5577 ml Intake Oral 1436 ml 150 ml 2870 ml IV Total 9457 ml Output Urine Total 700 ml 100 ml 6750 ml # Voids 4 1 9 # Bowel Movements 0 0 Exam NAD, comfortably laying down on the bed Pinpoint pupills, sluggish response no JVD, MMM, no LAD RRR, nl s1, s2 no mrg CTAB, no w,c S,ND,NT,normoactive BS+ warm, no edema, pulses 2/2 IVs and Medications Medications Reviewed: Medications were reviewed in detail Lab and Diagnostics Result Diagram: 05/26/1615 05/26/16 0615 X-Rays, CTs and MRIs MRI IMPRESSION: BRAIN MRI: No acute intracranial abnormalities. BRAIN MR ANGIOGRAM: No hemodynamically significant lesions of the central intracranial vasculature. NECK MR ANGIOGRAM: No hemodynamically significant lesions of the extracranial neck vasculature. Dictated by: David Carrasco M.D. on 05/22/2016 at 15:12 CT abd IMPRESSION: 1. Small low density bilateral pleural effusions and mild compressive atelectasis. 2. Probable appendectomy. Diverticulosis. No acute diverticulitis. 3. No acute intra-abdominal findings to explain abdominal pain. Dictated by: Noemi Lock M.D. on 05/23/2016 at 16:47 Assessment & Plan 56-year-old lady with past medical history of cognitive developmental delay was brought in by family due to altered mental status and generalized weakness of 1 day. acute, active # Altered mental status ,poa, acute. likely due acute toxic/metabolic encephalopathy. initially thought to be stroke/TIA with NIHSS7. However CTH/MRI negative, no brainstem infarc, so it was thought likely related to hypothermia. Mentation improved with rewarming. 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 Suspect acute. poa. unclear etiology - Diet advanced to mechanical soft - continue to reassess daily as mental status improve chronic, stable, # severe acute hypothermia, poa, unlclear etiologies, normalized with external rewarming, no Martinez waves in EKG, # Hypercalcemia, - Likely due to dehydration, resolved with IVF # Cognitive developmental delay, will resume risperidone once able to swallow dispo: likely tomorrow if pt remains stable, DNR/DNI, pt seems open to comfort care if pt deteriorate, sister at bedside DPOA diet: mechanical soft dvt ppx:start LMWH Resuscitation Status: CPR: Attempt Resuscitation Time spent 35min Shailesh Everett MD May 26, 2016 16:58
--- NOTE | 2016-05-27 05:20 | NUR ---
Activity pt has been resting in bed this shift. she appears drowsy and has slept most of the night but she wakes up spontaneously and answers all questions appropriately. she ate all of her dinner and took her risperdone without issue. blood sugar was 167 at HS and D5W IV fluids still running. will continue to monitor.
[2016-05-27 05:31] VITALS: PULSE 67
[2016-05-27 05:47] VITALS: BP 112/71; PULSE 65; RESP 18; O2SAT 98
[2016-05-27 07:02] LABS: BASOPHILS % (AUTO) 0.1 % (0-3); EOSINOPHILS % (AUTO) 0.4 % (0-5); MONOCYTES % (AUTO) 6.7 % (4-12); Mean Corpuscular Hemoglobin 27.8 pg (27.0-35.0); Mean Corpuscular Volume 83.9 fL (81-100); NEUTROPHILS % (AUTO) 80.1 % (40-74); Platelet Count 106 bil/L (150-400)
[2016-05-27 07:33] LABS: Magnesium 1.9 mg/dL (1.6-2.6); Phosphorus 3.3 mg/dL (2.5-4.9)
[2016-05-27] MEDS: risperiDONE 2 mg Tablet PO SCH ×2 (10:52→21:03)
[2016-05-27 11:18] VITALS: BP 96/66; PULSE 73; RESP 16; O2SAT 96
[2016-05-27 14:00] VITALS: BP 101/64; PULSE 81; RESP 15; O2SAT 92
--- NOTE | 2016-05-27 15:06 | PCM.PNMED ---
Subjective Date of Service May 27, 2016 Subjective pt became back to baseline yesterday afternoon and until this AM, then became lethargic, staring in the air intermittently again this afternoon when O2 weaned off SpO2 on RA 92%, increased >95% on 2liters, pt seemed better with O2 [id number] off since this AM, finished the whole portion of lunch Exam Vital Signs Vital Sign - Last Date Time Temp Pulse Resp B/P Pulse Ox O2 Delivery O2 Flow Rate FiO2 05/27/16 14:00 36.6 81 15 101/64 92 Room Air 05/27/16 05:47 4.00 Intake and Output 05/26/16 05/26/16 05/27/16 Cumulative From/Thru 15:00 23:00 07:00 05/22/16 09:12 - 05/27/16 06:45 Intake Total 1101 ml 1100 ml 59481 ml Output Total 6750 ml Balance 1101 ml 1100 ml 7778 ml Intake Oral 0 ml 100 ml 2970 ml IV Total 1101 ml 1000 ml 59183 ml Output Urine Total 6750 ml # Voids 2 5 16 # Bowel Movements 0 0 0 Exam NAD, comfortably laying down on the bed no JVD, MMM, no LAD RRR, nl s1, s2 no mrg CTAB, no w,c S,ND,NT,normoactive BS+ warm, no edema, pulses 2/2 IVs and Medications Medications Reviewed: Medications were reviewed in detail Lab and Diagnostics Result Diagram: 05/27/16 0630 05/27/16 0630 X-Rays, CTs and MRIs MRI IMPRESSION: BRAIN MRI: No acute intracranial abnormalities. BRAIN MR ANGIOGRAM: No hemodynamically significant lesions of the central intracranial vasculature. NECK MR ANGIOGRAM: No hemodynamically significant lesions of the extracranial neck vasculature. Dictated by: David Carrasco M.D. on 05/22/2016 at 15:12 CT abd IMPRESSION: 1. Small low density bilateral pleural effusions and mild compressive atelectasis. 2. Probable appendectomy. Diverticulosis. No acute diverticulitis. 3. No acute intra-abdominal findings to explain abdominal pain. Dictated by: Noemi Lock M.D. on 05/23/2016 at 16:47 Assessment & Plan 56-year-old lady with past medical history of cognitive developmental delay was brought in by family due to altered mental status and generalized weakness of 1 day. acute, active # Altered mental status ,poa, acute. likely due acute toxic/metabolic encephalopathy. initially thought to be stroke/TIA with NIHSS7. However CTH/MRI negative, no brainstem infarc, so it was thought likely related to hypothermia. Mentation improved with rewarming. 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 -avoid opioid or other sedatives possible, -will get ABG on RA to see hypoxemia, maintain SpO2>95% with supplement O2, possibly chest CT -no further invasive w/u such as LP, EEG ordered to rule out non-convulsive seizures, if this episodes recur intermittently, will empirically start AED, keppra 1g -random cortisol tomorrow AM # Dysphagia. Suspect acute. poa. unclear etiology - Diet advanced to mechanical soft - continue to reassess daily as mental status improve chronic, stable, # severe acute hypothermia, poa, unlclear etiologies, normalized with external rewarming, no Martinez waves in EKG, # Hypercalcemia, - Likely due to dehydration, resolved with IVF # Cognitive developmental delay, will resume risperidone once able to swallow dispo: unclear, 2-3more days until pt is stable DNR/DNI, family were open to comfort care if pt deteriorate, sister at bedside DPOA diet: mechanical soft dvt ppx:start LMWH Resuscitation Status: CPR: Attempt Resuscitation Time spent 35 minutes Shailesh Everett MD May 27, 2016 15:06
--- NOTE | 2016-05-27 16:03 | NUR ---
Activity 1355 Pt's sister and mother state pt's speech is harder to understand and she isn't her normal self. VSS, other than O2 which was at 92% on RA. Pt placed on 2L NC. BG 140. Pt is lying in bed staring and has a much flatter affect than earlier. MD notified and tests ordered. RT called for ABG. Continue to monitor. Addendum: 05/27/16 at 1911 by DARIO MARTINEZ RN [id number] Pt has improved with 2L NC and resting. Family notified about CPAP for probable KATHRYN.
[2016-05-27 19:45] VITALS: RESP 18; O2SAT 98
[2016-05-27 20:05] VITALS: BP 104/68; PULSE 76; RESP 16; O2SAT 97
[2016-05-28] VITALS (7 sets, daily range): BP systolic 104–112; BP diastolic 65–80; PULSE 69–83; RESP 16–18; O2SAT 96–97
--- NOTE | 2016-05-28 03:49 | NUR ---
Activity Pt. has C-PAP placed while asleep. Pt.'s 02 stats are 97%. Pt. had one time during the night where she was forgetful, and tried to pull her C-PAP off of her head. Pt. had a recent brief change which was done 10 mins prior, and brief was re-checked and was dry. This RN reminded pt. it was in the middle of the night, and pt. who was sitting up in bed went and laid back down to sleep. C-PAP still in place. Mother is in room on couch sleeping. Will continue to monitor.
[2016-05-28 07:16] LABS: BASOPHILS % (AUTO) 0.2 % (0-3); EOSINOPHILS % (AUTO) 1.3 % (0-5); MONOCYTES % (AUTO) 10.6 % (4-12); Mean Corpuscular Hemoglobin 27.4 pg (27.0-35.0); Mean Corpuscular Volume 83.9 fL (81-100); NEUTROPHILS % (AUTO) 68.5 % (40-74); Platelet Count 121 bil/L (150-400)
[2016-05-28 07:53] LABS: Magnesium 1.7 mg/dL (1.6-2.6); Phosphorus 3.2 mg/dL (2.5-4.9)
[2016-05-28] MEDS: risperiDONE 2 mg Tablet PO SCH ×2 (10:26→19:53)
--- NOTE | 2016-05-28 16:49 | PCM.PNMED ---
Subjective Date of Service May 28, 2016 Subjective 56-year-old woman with organic brain disease and developmental delay presents with hypothermia and encephalopathy. The patient is alert but with no significant communication. Mother at bedside states her mental status seems improved relative to baseline today. She has not noticed further spells of acute confusion or absence. Exam Vital Signs Vital Sign - Last Date Time Temp Pulse Resp B/P Pulse Ox O2 Delivery O2 Flow Rate FiO2 05/28/16 15:40 36.4 80 18 111/80 97 Room Air 05/28/16 05:31 2.00 Intake and Output 05/27/16 05/27/16 05/28/16 Cumulative From/Thru 15:00 23:00 07:00 05/22/16 09:12 - 05/28/16 06:08 Intake Total 1436 ml 0 ml 21841 ml Output Total 6750 ml Balance 1436 ml 0 ml 9214 ml Intake Oral 1436 ml 0 ml 4406 ml IV Total 01970 ml Output Urine Total 6750 ml # Voids 3 4 23 # Bowel Movements 0 0 0 Exam General: no acute distress HEENT: sclerae anicteric, oral mucosa moist Neck: no JVD Chest: clear to auscultation Cardiac: S1S2, no murmur Abdomen: BS normal, non-tender Extremities: No edema Neuro: Response to voice makes nonsensical comments, cranial nerves symmetric, motor strength seems essentially normal, poorly cooperative with exam IVs and Medications Medications Reviewed: Medications were reviewed in detail Lab and Diagnostics Result Diagram: 05/28/1648 05/28/16 0648 X-Rays, CTs and MRIs MRI IMPRESSION: BRAIN MRI: No acute intracranial abnormalities. BRAIN MR ANGIOGRAM: No hemodynamically significant lesions of the central intracranial vasculature. NECK MR ANGIOGRAM: No hemodynamically significant lesions of the extracranial neck vasculature. Dictated by: David Carrasco M.D. on 05/22/2016 at 15:12 CT abd IMPRESSION: 1. Small low density bilateral pleural effusions and mild compressive atelectasis. 2. Probable appendectomy. Diverticulosis. No acute diverticulitis. 3. No acute intra-abdominal findings to explain abdominal pain. Dictated by: Noemi Lock M.D. on 05/23/2016 at 16:47 . Assessment & Plan 56-year-old lady with past medical history of cognitive developmental delay was brought in by family due to altered mental status and generalized weakness of 1 day. acute, active # Altered mental status ,poa, acute. likely due acute toxic/metabolic encephalopathy. initially thought to be stroke/TIA with NIHSS7. However CTH/MRI negative, no brainstem infarc, so it was thought likely related to hypothermia. Mentation improved with rewarming. Family says very unlikely she was exposed to cold, FT4 is high-normal despite trivial TSH elevation. 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 - avoid opioid or other sedatives possible, - no further invasive w/u such as LP, - EEG ordered to rule out non-convulsive seizures, - if episodes recur intermittently, will empirically start AED, keppra 1g # Dysphagia. Suspect acute. poa. unclear etiology - Diet advanced to mechanical soft - continue to reassess daily as mental status improve chronic, stable, # severe acute hypothermia, poa, unlclear etiologies, normalized with external rewarming, no Martinez waves in EKG, # Hypercalcemia, - Likely due to dehydration, resolved with IVF # Cognitive developmental delay, will resume risperidone once able to swallow dispo: unclear, 1 more days until after EEG is obtained and patient remains stable DNR/DNI, family were open to comfort care if pt deteriorate, sister at bedside DPOA diet: mechanical soft dvt ppx:start LMWH Resuscitation Status: CPR: Attempt Resuscitation Time spent 30 minutes Grayson Leon MD May 28, 2016 16:49
--- NOTE | 2016-05-28 18:04 | NUR ---
Activity Pt sating in high 90's on RA and had no episodes of slurring speech or other s/s that family was concerned about. Able to get pt into chair where she was comfortable. Pt also able to walk in hallways with FWW, but has unsteady gait and needs direction to not go too fast. No c/o pain during shift. Pt has call light, bed in low, continue to monitor.
[2016-05-29 00:39] VITALS: BP 109/69; PULSE 77; RESP 18; O2SAT 99
--- NOTE | 2016-05-29 05:26 | NUR ---
Activity Pt energetic at beginning of shift. Up to BR with OPA and FWW. Pt wearing CPAP at night, CPOx 98%. Mother sleeping in the room. Pt can be impulsive at times and needs bed alarm while mother is asleep. Continue close monitoring.
[2016-05-29 06:06] VITALS: BP 122/72; PULSE 79; RESP 18; O2SAT 97
[2016-05-29 08:00] VITALS: PULSE 85
[2016-05-29] MEDS: risperiDONE 2 mg Tablet PO SCH ×2 (08:48→21:15)
[2016-05-29 13:50] VITALS: BP 113/66; PULSE 77; RESP 20; O2SAT 96
--- NOTE | 2016-05-29 15:47 | PCM.PNMED ---
Subjective Date of Service May 29, 2016 Subjective Pt seen and examined. Patient has had no acute events overnight and no seizure activity noted by mother. Patient received EEG, currently awaiting results. Exam Vital Signs Vital Sign - Last Date Time Temp Pulse Resp B/P Pulse Ox O2 Delivery O2 Flow Rate FiO2 05/29/16 13:50 36.1 77 20 113/66 96 Room Air 05/29/16 06:06 2.00 Intake and Output 05/28/16 05/28/16 05/29/16 Cumulative From/Thru 15:00 23:00 07:00 05/22/16 09:12 - 05/29/16 06:23 Intake Total 1172 ml 200 ml 16431 ml Output Total 200 ml 750 ml 7700 ml Balance 972 ml -550 ml 9636 ml Intake Oral 1172 ml 200 ml 5778 ml IV Total 46243 ml Output Urine Total 200 ml 750 ml 7700 ml # Voids 2 1 26 # Bowel Movements 0 0 0 Exam General: Developmentally delayed, no distress on exam HEENT: sclerae anicteric, oral mucosa moist Neck: no apparent JVD Chest: clear to auscultation Cardiac: S1S2, no murmur, rubs or gallops Abdomen: BS normal, non-tender Extremities: No edema; bilateral bandage stasis dermatitis and ulcerations of lower legs Neuro: Not fully oriented, cranial nerves generally symmetric, uncooperative with motor and coordination exam IVs and Medications Medications Reviewed: Medications were reviewed in detail Lab and Diagnostics Result Diagram: 05/28/1648 05/28/16 0648 X-Rays, CTs and MRIs MRI IMPRESSION: BRAIN MRI: No acute intracranial abnormalities. BRAIN MR ANGIOGRAM: No hemodynamically significant lesions of the central intracranial vasculature. NECK MR ANGIOGRAM: No hemodynamically significant lesions of the extracranial neck vasculature. Dictated by: David Carrasco M.D. on 05/22/2016 at 15:12 CT abd IMPRESSION: 1. Small low density bilateral pleural effusions and mild compressive atelectasis. 2. Probable appendectomy. Diverticulosis. No acute diverticulitis. 3. No acute intra-abdominal findings to explain abdominal pain. Dictated by: Noemi Lock M.D. on 05/23/2016 at 16:47 . Assessment & Plan 56-year-old lady with past medical history of cognitive developmental delay was brought in by family due to altered mental status and generalized weakness of 1 day. acute, active # Altered mental status ,poa, acute. likely due acute toxic/metabolic encephalopathy. initially thought to be stroke/TIA with NIHSS7. However CTH/MRI negative, no brainstem infarc, so it was thought likely related to hypothermia. Mentation improved with rewarming. Family says very unlikely she was exposed to cold, FT4 is high-normal despite trivial TSH elevation. 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 - avoid opioid or other sedatives possible, - no further invasive w/u such as LP, - EEG ordered to rule out non-convulsive seizures, currently awaiting results # Dysphagia. Suspect acute. poa. unclear etiology - Diet advanced to mechanical soft - continue to reassess daily as mental status improve chronic, stable, # severe acute hypothermia, poa, unlclear etiologies, normalized with external rewarming, # Hypercalcemia, - Likely due to dehydration, resolved with IVF # Cognitive developmental delay, will resume risperidone once able to swallow dispo: unclear, 1 more days until after EEG is obtained and patient remains stable DNR/DNI, family were open to comfort care if pt deteriorate, sister at bedside DPOA diet: mechanical soft dvt ppx:start LMWH Resuscitation Status: CPR: Attempt Resuscitation Albaro Bucio MD May 29, 2016 15:47
--- NOTE | 2016-05-29 16:12 | NUR ---
Social Work Continued Discharge Planning: SW conducted discharge planning update. Patient is a 56 year old female admitted on 05/22/16 for CVA. Patient resides in [place] with family. Patient is developmentally delayed and family cares for all care needs at home. EEG pending at this time. SW following for possible 02 needs upon discharge. Patient was placed on CPAP last night. SW will continue to follow to ensure appropriate discharge arrangements upon discharge. SW to follow. PLAN: Possible home with family continued support and care with r/o for home 02, pending clinical course. SW to follow. Cody SINGLETARY.
[2016-05-29] MEDS: Polyethylene Glycol (PEG) 17 Gm Powder PO PRN (17:53)
--- NOTE | 2016-05-29 17:54 | NUR ---
Constipation Per charting pt has not had a BM since 05/25. Abdomen soft and nontender. Family unable to confirm if pt has had one more recently. Senna and Miralax given at 1800 tonight. Pt wearing brief.
[2016-05-29 20:56] VITALS: BP 108/69; PULSE 74; RESP 18; O2SAT 97
--- NOTE | 2016-05-30 04:53 | NUR ---
CPAP / O2 sats Unable to tolerate wearing CPAP tonight, pt continued to remove and was unable to sleep until it was removed. Pulse oximetry shows O2 remained > 92 % on room air including while sleeping. Hourly rounding ongoing.
[2016-05-30 05:15] VITALS: BP 106/66; PULSE 67; RESP 18; O2SAT 96
[2016-05-30 06:51] VITALS: RESP 18; O2SAT 98
[2016-05-30] MEDS: risperiDONE 2 mg Tablet PO SCH ×2 (08:32→22:02)
[2016-05-30 09:42] VITALS: BP 118/63; PULSE 74; RESP 20; O2SAT 95
--- NOTE | 2016-05-30 13:16 | NUR ---
fall risk pt has slightly unsteady gait, but she is good about using her walker and mother stays in room with her. Her mother said she is probably at baseline, because she isn't very steady at best
[2016-05-30 15:25] VITALS: BP 113/70; PULSE 65; RESP 24; O2SAT 95
--- NOTE | 2016-05-30 17:29 | PCM.PNMED ---
Subjective Date of Service May 30, 2016 Subjective PT seen and examined. Patient is up to her baseline mental status. Patient is still awaiting the results of her EEG Exam Vital Signs Vital Sign - Last Date Time Temp Pulse Resp B/P Pulse Ox O2 Delivery O2 Flow Rate FiO2 05/30/16 15:42 CPAP/BIPAP 05/30/16 15:25 36.6 65 24 113/70 95 05/30/16 06:51 2.00 Intake and Output 05/29/16 05/29/16 05/30/16 Cumulative From/Thru 15:00 23:00 07:00 05/22/16 09:12 - 05/30/16 06:35 Intake Total 691 ml 800 ml 19504 ml Output Total 500 ml 1013 ml 9213 ml Balance 191 ml -213 ml 9614 ml Intake Oral 691 ml 800 ml 7269 ml IV Total 31004 ml Output Urine Total 500 ml 1013 ml 9213 ml # Voids 6 1 33 # Bowel Movements 0 Exam General: Obese man sitting forward moderate distress HEENT: sclerae anicteric, oral mucosa moist Neck: no JVD Chest: clear to auscultation Cardiac: S1S2, no murmur Abdomen: BS present, non-tender to palpate Extremities: No edema; Neuro: A&O, cranial nerves symmetric, motor strength 5/5, Lab and Diagnostics Result Diagram: 05/28/1648 05/28/16 0648 X-Rays, CTs and MRIs MRI IMPRESSION: BRAIN MRI: No acute intracranial abnormalities. BRAIN MR ANGIOGRAM: No hemodynamically significant lesions of the central intracranial vasculature. NECK MR ANGIOGRAM: No hemodynamically significant lesions of the extracranial neck vasculature. Dictated by: David Carrasco M.D. on 05/22/2016 at 15:12 CT abd IMPRESSION: 1. Small low density bilateral pleural effusions and mild compressive atelectasis. 2. Probable appendectomy. Diverticulosis. No acute diverticulitis. 3. No acute intra-abdominal findings to explain abdominal pain. Dictated by: Noemi Lock M.D. on 05/23/2016 at 16:47 . Assessment & Plan 56-year-old lady with past medical history of cognitive developmental delay was brought in by family due to altered mental status and generalized weakness of 1 day. acute, active # Altered mental status ,poa, acute. likely due acute toxic/metabolic encephalopathy. initially thought to be stroke/TIA with NIHSS7. However CTH/MRI negative, no brainstem infarc, so it was thought likely related to hypothermia. Mentation improved with rewarming. Family says very unlikely she was exposed to cold, FT4 is high-normal despite trivial TSH elevation. 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 - avoid opioid or other sedatives possible, - no further invasive w/u such as LP, - EEG ordered to rule out non-convulsive seizures, currently awaiting results # Dysphagia. Suspect acute. poa. unclear etiology - Diet advanced to mechanical soft - continue to reassess daily as mental status improve chronic, stable, # severe acute hypothermia, poa, unlclear etiologies, normalized with external rewarming, # Hypercalcemia, - Likely due to dehydration, resolved with IVF # Cognitive developmental delay, will resume risperidone once able to swallow dispo: unclear, 1 more days until after EEG is obtained and patient remains stable DNR/DNI, family were open to comfort care if pt deteriorate, sister at bedside DPOA diet: mechanical soft dvt ppx:start LMWH Resuscitation Status: CPR: Attempt Resuscitation Albaro Bucio MD May 30, 2016 17:29
[2016-05-30 21:01] VITALS: BP 114/70; PULSE 76; RESP 20; O2SAT 94
[2016-05-30 22:28] VITALS: RESP 18; O2SAT 96
--- NOTE | 2016-05-31 00:20 | NUR ---
PSYCH; asleep. Mother on cot in room. No c/o voiced.
--- NOTE | 2016-05-31 00:51 | PROCED ---
[address] [address] EEG PATIENT: RICK HASSAN : 1960 MR#: [id number] ADMIT: 05/22/2016 JOB ID: [id number] DATE OF SERVICE: 05/29/2016 HISTORY: The patient is a 56-year-old woman with a seizure when she was 10 months old, with two spells characterized by altered mental status and slurred speech. Reportedly, she has been seizure free since she was 7 years old. TECHNICAL DESCRIPTION: This digital EEG was recorded using 25 scalp and ear, and 2 EKG electrodes. It was reviewed in bipolar and referential montages following reformatting of the 10-20 International Electrode Placement System. During the recording, the patient was noted to be awake, drowsy and asleep. The background was composed of a 8.5-9 Hz, 10-20 microvolt symmetrical and rate active posterior dominant rhythm that attenuated with eye opening. The rest of the background was composed of low voltage faster frequencies. There were no focal, lateralized or epileptiform discharges noted. There were no seizures seen. Sleep was characterized by the attenuation of the alpha rhythm and the appearance of symmetrical vertex waves, heralding stage 1 of sleep. This was followed by the development of symmetrical sleep spindles and K complexes, heralding stage 2 of sleep. Hyperventilation was not performed. Photic stimulation from 1-30 Hz did not elicit any photic driving response. The single lead electrocardiogram revealed a heart rate of 60 to 80 beats per minute with the appearance of a single premature ventricular complex, however, otherwise did not demonstrate any arrhythmias. IMPRESSION: This electroencephalogram performed in the awake, drowsy and asleep states is within normal limits. Clinical correlation is advised. If clinically indicated, a 12 lead electrocardiogram may be warranted. Clinical correlation is advised. ALFREDITOD
[2016-05-31 03:51] VITALS: RESP 10; O2SAT 96
[2016-05-31 06:14] VITALS: BP 119/70; PULSE 80; RESP 20; O2SAT 95
[2016-05-31] MEDS: risperiDONE 2 mg Tablet PO SCH (08:18)
--- NOTE | 2016-05-31 11:53 | PCM.DIMED ---
Discharge Instructions Date of Service May 31, 2016 Dates of Hospitalization May 22, 2016 at 10:18 Discharge Diagnosis Discharge Diagnosis altered mental status Test Results EEG was negative [address] [address] EEG PATIENT: RICK HASSAN : 1960 MR#: [id number] ADMIT: 05/22/2016 JOB ID: [id number] DATE OF SERVICE: 05/29/2016 HISTORY: The patient is a 56-year-old woman with a seizure when she was 10 months old, with two spells characterized by altered mental status and slurred speech. Reportedly, she has been seizure free since she was 7 years old. TECHNICAL DESCRIPTION: This digital EEG was recorded using 25 scalp and ear, and 2 EKG electrodes. It was reviewed in bipolar and referential montages following reformatting of the 10-20 International Electrode Placement System. During the recording, the patient was noted to be awake, drowsy and asleep. The background was composed of a 8.5-9 Hz, 10-20 microvolt symmetrical and rate active posterior dominant rhythm that attenuated with eye opening. The rest of the background was composed of low voltage faster frequencies. There were no focal, lateralized or epileptiform discharges noted. There were no seizures seen. Sleep was characterized by the attenuation of the alpha rhythm and the appearance of symmetrical vertex waves, heralding stage 1 of sleep. This was followed by the development of symmetrical sleep spindles and K complexes, heralding stage 2 of sleep. Hyperventilation was not performed. Photic stimulation from 1-30 Hz did not elicit any photic driving response. The single lead electrocardiogram revealed a heart rate of 60 to 80 beats per minute with the appearance of a single premature ventricular complex, however, otherwise did not demonstrate any arrhythmias. IMPRESSION: This electroencephalogram performed in the awake, drowsy and asleep states is within normal limits. Clinical correlation is advised. If clinically indicated, a 12 lead electrocardiogram may be warranted. Clinical correlation is advised. Patient Name: RICK HASSAN MR#: [id number] Location: [facility] Phys: Shailesh Everett MD Date of Service: 05/26/16 0824 PROCEDURE: CT BRAIN WITHOUT CONTRAST ([id number]) INDICATIONS: lethargy TECHNIQUE: Noncontrast 4.5 mm thick angled axial sections acquired from the foramen magnum to the vertex, with coronal reformats. COMPARISON: [facility], CT, CT BRAIN WO CON, 05/22/2016, 9:24. FINDINGS: Image quality: Excellent. CSF spaces: Basal cisterns are patent. No extra-axial fluid collections. Ventricles are normal in size and shape. Brain: No midline shift. No intracranial masses or hemorrhage. Camacho-white matter interface is normal. Skull and face: Calvarium and visualized facial bones are intact, without suspicious lesions. Sinuses: Visualized sinuses and mastoids are clear. IMPRESSION: No acute intracranial disease process. Diet No restrictions Activity No restrictions Patient Instructions Please follow up with your pmd at your convienience. Follow-up with PCP in: 2 weeks Attending's Statement Patient has returned to baseline mental status. Patient is stable for discharge. Albaro Bucio MD May 31, 2016 11:53
--- NOTE | 2016-05-31 12:04 | NUR ---
dc: Pt and mother given all dc instructions, no scripts given, and iv dc'd cannula intact. Understanding of home health process in place. Pt eating lunch and then dc to private vehicle. Addendum: 05/31/16 at 1252 by AYESHA TRUJILLO RN dc'd to private vehicle at approx 1230
--- NOTE | 2016-05-31 13:19 | NUR ---
Social Work Discharge and Continued Discharge Planning: Order for discharge acknowledged. Plan remains as home with family support and care. Per report in rounds EEG results notated. Plan is home with family care. Patient on room air at this time. No other anticipated discharge needs at this time. PLAN: Home with family support, via POV, pending clinical course. Cody SINGLETARY
--- NOTE | 2016-06-20 14:14 | PCM.DC.MED ---
Discharge Summary Date of Service Jun 20, 2016 Dates of Hospitalization Date of Hospital Admission May 22, 2016 at 10:18 Date of Discharge: May 31, 2016 Providers: Admitting Physician: Lisandro Collins MD Primary Care Physician: Jaimie Romo PA-C Attending Physician: Lisandro Collins MD Diagnosis at Time of Discharge Diagnosis at Time of Discharge altered mental status Consultations none Procedures XRay, CTs & MRIs MRI IMPRESSION: BRAIN MRI: No acute intracranial abnormalities. BRAIN MR ANGIOGRAM: No hemodynamically significant lesions of the central intracranial vasculature. NECK MR ANGIOGRAM: No hemodynamically significant lesions of the extracranial neck vasculature. Dictated by: David Carrasco M.D. on 05/22/2016 at 15:12 CT abd IMPRESSION: 1. Small low density bilateral pleural effusions and mild compressive atelectasis. 2. Probable appendectomy. Diverticulosis. No acute diverticulitis. 3. No acute intra-abdominal findings to explain abdominal pain. Dictated by: Noemi Lock M.D. on 05/23/2016 at 16:47 . ECG 12 Lead sinus rhythm @ 78 bpm Brief History 56-year-old lady with past medical history of cognitive developmental delay was brought in by family due to altered mental status and generalized weakness of 1 day. Patient was noted to have 2 episodes of ground-level falls yesterday, which was unusual for her. Patient was also noted be be lethargic/sleepy and non verbal today . Normally she is talkative as per family. This morning at 1 AM patient went into her mother's bedroom and was just staring which is unusual for her and was having slurring of speech which prompted ED visit. Ed course : Severely hypothermic rectal temp 30, BP 122/67, HR 70, RR 8 /m, saturating 98% on room air Reportedly had right-sided weakness on initial exam as per ED physician, initial NIHSS 7 . Not a candidate for TPA due to out of window Labs unremarkable, urinalysis negative. CT head unremarkable Hospitalist service requested for admission for suspected acute stroke. Upon my evaluation: Severely hypothermic, very lethargic, follows commands intermittently. Able to lift all 4 extremities and no asymmetry noted. Dry tongue Hospital Course 56-year-old lady with past medical history of cognitive developmental delay was brought in by family due to altered mental status and generalized weakness of 1 day. acute, active # Altered mental status ,poa, acute. likely due acute toxic/metabolic encephalopathy. initially thought to be stroke/TIA with NIHSS7. However CTH/MRI negative, no brainstem infarc, so it was thought likely related to hypothermia. Mentation improved with rewarming. Family says very unlikely she was exposed to cold, FT4 is high-normal despite trivial TSH elevation. 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 - avoid opioid or other sedatives possible, - no further invasive w/u such as LP, - EEG does not show any evidence of seizure activity - no further episodes of altered mental status # Dysphagia. Suspect acute. poa. unclear etiology - Diet advanced to mechanical soft - improved to baseline by discharge chronic, stable, # severe acute hypothermia, poa, unlclear etiologies, normalized with external rewarming, # Hypercalcemia, - Likely due to dehydration, resolved with IVF # Cognitive developmental delay dispo: discharge to care of family DNR/DNI, family were open to comfort care if pt deteriorate, sister at bedside DPOA Exam Test 05/22/16 10:05 05/22/16 10:10 05/22/16 11:45 05/24/16 09:45 Hold Rangel Top Tube Received (Received) Urine Opiates Screen Negative Urine Methadone Screen Negative Urine Barbiturates Screen Negative Urine Amphetamines Screen Negative Urine Benzodiazepines Screen Negative Urine Cocaine Metabolite Screen Negative Urine Cannabinoids Screen Negative Lactic Acid Level 0.6mmol/L (0.4-2.0) Calcium (Send out) 10.1mg/dL (8.7-10.2) Ammonia 26ug/dL (18-53) Total Creatine Kinase 92U/L (21-215) Troponin T 0.010ug/L (0.0-0.011) Vitamin D 25-Hydroxy 71ng/mL (.) 25-Hydroxy Vitamin D2 <1.0ng/mL (.) 25-Hydroxy Vitamin D3 71ng/mL (.) Procalcitonin < 0.05ng/mL (See Comment) Parathyroid Hormone Interpretation Comment (.) Total Intact Parathyroid Hormone 29pg/mL (15-65) Prothrombin Time 10.5sec (8.1-12.5) Prothromb Time International Ratio 0.98ratio Activated Partial Thromboplast Time 28.6sec (22.8-33.0) Test 05/25/16 16:00 05/26/16 06:15 05/27/16 06:30 05/28/16 06:48 Urine Color Straw (YELLOW) Urine Appearance Clear (CLEAR,HAZY) Urine pH 7.0 (5.0-8.0) Urine Specific [place] 1.015 (1.003-1.035) Urine Protein Negativemg/dL (NEG,TRACE) Urine Glucose (UA) Negativemg/dL (NEGATIVE) Urine Ketones Negativemg/dL (NEGATIVE) Urine Occult Blood Trace (NEGATIVE) Urine Nitrite Negative (NEGATIVE) Urine Bilirubin Negative (NEGATIVE) Urine Urobilinogen Normalmg/dL (NORMAL) Urine Leukocyte Esterase Negative (NEGATIVE) Urine RBC 0-2/hpf (0-2) Urine WBC 0-5/hpf (0-5) Urine Epithelial Cells Occasional/hpf (NONE-MOD) Urine Crystals None seen (NONE SEEN) Urine Bacteria None/hpf (NONE-FEW) Urine Hyaline Casts None/lpf (NONE) Urine Granular Casts None seen (NONE SEEN) Urine Waxy Casts None seen (NONE SEEN) Urine Red Blood Cell Casts None seen (NONE SEEN) Urine White Blood Cell Casts None seen (NONE SEEN) Urine Mucus None seen (None Seen) Urine Trichomonas None seen (NONE SEEN) Urine Yeast None (NONE SEEN) Urinalysis Comment None Urine Culture Reflexed Not indicated Hemoglobin A1c 5.9% (4.8-5.6) Triglycerides Level 66mg/dL (0-149) Cholesterol Level 179mg/dL (100-199) LDL Cholesterol, Calculated 63.800mg/dL (0-99) VLDL Cholesterol 13.200mg/dL HDL Cholesterol 102mg/dL (>39) Cholesterol/HDL Ratio 1.75 (0.0-4.4) Thyroid Stimulating Hormone (TSH) 4.960uIU/mL (0.450-4.500) Free Thyroxine 1.57ng/dL (0.82-1.77) White Blood Count 6.2th/mm3 (3.8-10.1) Red Blood Count 4.23mil/mm3 (3.90-5.20) Hemoglobin 11.6g/dL (12.0-15.6) Hematocrit 35.5% (35.0-46.0) Mean Corpuscular Volume 83.9fL (81-100) Mean Corpuscular Hemoglobin 27.4pg (27.0-35.0) Mean Corpuscular Hemoglobin Concent 32.7% (32.0-37.0) Red Cell Distribution Width 14.5% (12.3-15.4) Platelet Count 121bil/L (150-400) Neutrophils (%) (Auto) 68.5% (40-74) Lymphocytes (%) (Auto) 19.2% (14-46) Monocytes (%) (Auto) 10.6% (4-12) Eosinophils (%) (Auto) 1.3% (0-5) Basophils (%) (Auto) 0.2% (0-3) Sodium Level 141mEq/L (134-144) Potassium Level 4.3mEq/L (3.5-5.2) Chloride Level 102mEq/L (97-108) Carbon Dioxide Level 27mmol/L (18-29) Blood Urea Nitrogen 17mg/dL (6-24) Creatinine 0.61mg/dL (0.57-1.00) Estimat Glomerular Filtration Rate 145mL/min (>59) Glucose Level 75mg/dL (60-99) Calcium Level 9.5mg/dL (8.5-10.1) Phosphorus Level 3.2mg/dL (2.5-4.9) Magnesium Level 1.7mg/dL (1.6-2.6) Total Bilirubin 0.4mg/dL (0.0-1.2) Aspartate Amino Transf (AST/SGOT) 39U/L (0-50) Alanine Aminotransferase (ALT/SGPT) 61U/L (0-32) Alkaline Phosphatase 106U/L (25-150) Total Protein 6.6g/dL (6.4-8.4) Albumin 3.0g/dL (3.4-5.0) Cortisol 6.7ug/dL (.) Discharge Medications Discharge Medications Multivitamin (Multi Vitamin Daily) 1 Each Tablet 1 EACH PO DAILY (Reported) Risperidone (Risperidone) 2 Mg Tablet 2 MG PO BID (Reported) Miscellaneous Medications Calcium Carbonate/Vitamin D3 (Calcium 500 + Vit D Caplet) 1 Each Tablet 1 EACH PO (Reported) Followup Plan Discharge Diet: No restrictions Discharge Activity: No restrictions Patient Instructions Please follow up with your pmd at your convienience. Follow-up with PCP in: 2 weeks Albaro Bucio MD Jun 20, 2016 14:10
== END 2016-05-31 12:36 | disposition home or self-care (01) | DRG 72 ==
LOC: SED 08:55 → OBSVTOIN 10:18 → OSC 10:18
PROVIDERS: ADMIT Internal Medicine; ATTEND Internal Medicine
PROC: 4A033R1 Measurement of Arterial Saturation, Peripheral, Percutaneous Approach (ICD-10-PCS; principal; 2016-05-22)
PROC: 4A0 Measurement and Monitoring, Physiological Systems, Measurement (ICD-10-PCS; 2016-05-29)
DX: G93.41 Metabolic encephalopathy (principal); T68.XXXA Hypothermia, initial encounter; F88 Other disorders of psychological development; E83.52 Hypercalcemia; R29.707 NIHSS score 7; R13.10 Dysphagia, unspecified; Z66 Do not resuscitate